=== PATIENT | male | born 1960 | race Caucasian/White ===

== ENCOUNTER 2024-07-03 11:53 | Inpatient (IN) | payer BC, OTHER ==
[~2024-07-03] VITALS: Ht 180.3 cm; Wt 105.0 kg
[2024-07-03 12:28] LABS: Basophils # (auto) 0 10 ^3/uL (0-0.2); Basophils % (auto) 0.7 % (0.0-2.0); Eosinophils # (auto) 0.3 10 ^3/uL (0-0.8); Eosinophils % (auto) 4.7 % (0.0-7.0); Hematocrit 48.7 % (41.0-53.0); Hemoglobin 17.1 g/dL (13.5-17.5); Lymphocytes # (auto) 1.8 10 ^3/uL (0.4-5.4); Lymphocytes % (auto) 24.8 % (10.0-50.0); Mean Corpuscular Hemoglobin 31.2 pg (28.0-32.0); Mean Corpuscular Hgb Conc. 35.1 g/dL (32.0-36.0); Mean Corpuscular Volume 88.9 fL (80.0-100.0); Monocytes # (auto) 0.6 10 ^3/uL (0-1.3); Monocytes % (auto) 8.7 % (0.0-12.0); Neutrophils # (auto) 4.5 10 ^3/uL (1.6-8.6); Neutrophils % (auto) 61.1 % (37.0-80.0); Nucleated Red Blood Cells % 0.2 %; Platelet Count (auto) 161 10^3/uL (140-450); Red Blood Cells 5.48 10^6/uL (4.5-5.90); Red Cell Distribution Width 13.9 % (11.8-14.3); White Blood Cell 7.3 10^3/uL (4.4-10.8)
[2024-07-03 12:33] LABS: Chloride 101 mmol/L (98-107); Sodium 140 mmol/L (136-145)
[2024-07-03 12:34] LABS: Anion Gap 10 (5-15); Calcium 10.6 mg/dL (8.7-10.4); Carbon Dioxide 29 mmol/L (20-31)
[2024-07-03 12:39] LABS: BUN/Creatinine Ratio 12.6 (10.0-20.0); Blood Urea Nitrogen 16 mg/dL (9-23); Glucose 103 mg/dL (74-106)
[2024-07-03] MEDS: METOPROLOL TARTRATE 1MG/1ML-5ML VIAL IV ONE (12:39)
--- NOTE | 2024-07-03 13:14 | DVH ---
CHEST RADIOGRAPH Indication: RAPID AFIB Technique: Single frontal view of the chest was obtained COMPARISON: None FINDINGS: Lines and Tubes: Median sternotomy Lungs: Clear Pleura: No effusion. No pneumothorax. Cardiomediastinal contours: Cardiomegaly Bones: Unremarkable IMPRESSION: No acute disease.
--- NOTE | 2024-07-03 13:20 | DVH ---
EXAM: CT HEAD WITHOUT CONTRAST INDICATION: SYNCOPE TECHNIQUE: CT of the head without intravenous contrast. Radiation Dose : 1. Head: CT Dose: CTDI volume is 64.91 mGy. Dose-length product is 1278.89 mGy*cm The dose indicators for CT are the volume Computed Tomography (CT) Dose Index (CTDIvol) and the Dose Length Product (DLP), and are measured in units of mGy and mGy-cm, respectively. These indicators are not patient dose, but values generated from the CT scanner acquisition factors. The report includes radiation exposure data for exposures received during this examination. COMPARISON: None FINDINGS: There is no evidence of acute intracranial hemorrhage, extra-axial collection, mass effect, midline s hift, herniation or hydrocephalus. The ventricles, sulci and cisterns are age appropriate. The wilder-white differentiation is intact. Mild mucosal disease of the visualized paranasal sinuses without evidence of air-fluid levels or opac ification. The surrounding soft tissues and osseous structures are unremarkable. IMPRESSION: No acute intracranial abnormality.
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
[2024-07-03 15:45] LABS: Urine Bacteria None Seen /hpf (None Seen)
[2024-07-03 15:52] LABS: Urine Blood Negative /uL (Negative); Urine Clarity Clear (Clear); Urine Color Light-Yellow (Yellow); Urine Hyaline Cast MANY /lpf (0 - 2); Urine Mucus FEW (None Seen); Urine Protein, UAD TRACE (Negative); Urine Specific Gravity 1.015 (1.001-1.035); Urine Urobilinogen Normal (Negative); Urine WBC 1 /hpf (0 - 3); Urine pH 5.5 (5.0-9.0)
[2024-07-03] MEDS ORDERED: ACETAMINOPHEN 325 MG TAB PO PRN (16:30)
[2024-07-03] MEDS ORDERED: ONDANSETRON HCL 4 MG/2 ML VIAL IV PRN (16:30)
[2024-07-03] MEDS ORDERED: LORazepam 0.5 MG TAB PO PRN (16:30)
[2024-07-03] MEDS ORDERED: ZOLPIDEM TARTRATE 5 MG TAB PO PRN (16:30)
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
[2024-07-03] MEDS: SODIUM CHLORIDE 0.9% 1,000 ML IV SCH (16:58)
--- NOTE | 2024-07-03 17:29 | DVH ---
Carotid Duplex Date: 07/03/2024 04:53 PM Clinical History: syncope stroke eval Comparison: None Technique: Duplex Doppler evaluation of the extracranial carotid and vertebral arteries including color Doppler and spectral/pulsed waveform analysis was performed. Findings: RIGHT SIDE: The peak systolic velocities are 67 cm/s in the distal CCA and 100 cm/s in the proximal ICA.The ICA/C CA ratio is less than 2. The external carotid artery is patent with peak systolic velocity of 135 cm/s proximally. There is appropriate antegrade flow in the right vertebral artery. LEFT SIDE: The peak systolic velocities are 112 cm/s in the distal CCA and 93 cm/s in the proximal ICA.. The IC A/CCA ratio is less than 1. The external carotid artery is patent with peak systolic velocity of 117 cm/s proximally. There is appropriate antegrade flow in the left vertebral artery. IMPRESSION: No hemodynamically significant stenosis noted in the right carotid system. No hemodynamically significant stenosis noted in the left carotid system. Reference: Radiology 2003; 229:340-346
[2024-07-03] MEDS: FUROSEMIDE 40 MG/4 ML VIAL IV SCH (18:08)
--- NOTE | 2024-07-03 18:09 | ECG ---
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
[2024-07-03 20:00] VITALS: PULSE 76; RESP 14; O2SAT 95
[2024-07-03] MEDS: METOPROLOL TARTRATE 25 MG TAB PO SCH (23:19)
[2024-07-03] MEDS: ENOXAPARIN SOD 100 MG/1 ML SYRINGE SC SCH (23:20)
[2024-07-03] MEDS: ATORVASTATIN 20 MG TAB PO SCH (23:20)
[2024-07-04] VITALS (8 sets, daily range): BP systolic 104–119; BP diastolic 43–92; PULSE 59–87; RESP 16–20; TEMP 97.5–97.8; O2SAT 95–97
[2024-07-04] MEDS ORDERED: FURO40TA4 PO (04:42)
[2024-07-04] MEDS ORDERED: ATOR-47 PO (04:42)
[2024-07-04] MEDS ORDERED: METO1TAB9 PO (04:42)
[2024-07-04] MEDS ORDERED: APIX5TAB PO (04:42)
[2024-07-04] MEDS ORDERED: ALBU108A5 INH (04:43)
[2024-07-04 08:22] LABS: Basophils # (auto) 0.1 10 ^3/uL (0-0.2); Basophils % (auto) 1.2 % (0.0-2.0); Eosinophils # (auto) 0.3 10 ^3/uL (0-0.8); Eosinophils % (auto) 6.1 % (0.0-7.0); Hematocrit 43.8 % (41.0-53.0); Lymphocytes # (auto) 1.7 10 ^3/uL (0.4-5.4); Lymphocytes % (auto) 29.3 % (10.0-50.0); Mean Corpuscular Hemoglobin 30.6 pg (28.0-32.0); Mean Corpuscular Hgb Conc. 34.4 g/dL (32.0-36.0); Mean Corpuscular Volume 89.1 fL (80.0-100.0); Monocytes # (auto) 0.6 10 ^3/uL (0-1.3); Monocytes % (auto) 11.2 % (0.0-12.0); Neutrophils % (auto) 52.2 % (37.0-80.0); Platelet Count (auto) 148 10^3/uL (140-450); Red Blood Cells 4.91 10^6/uL (4.5-5.90); Red Cell Distribution Width 13.7 % (11.8-14.3); White Blood Cell 5.7 10^3/uL (4.4-10.8)
[2024-07-04 08:33] LABS: Anion Gap 9 (5-15); Carbon Dioxide 29 mmol/L (20-31); Chloride 103 mmol/L (98-107); Potassium 3.6 mmol/L (3.5-5.1); Sodium 141 mmol/L (136-145)
[2024-07-04 08:39] LABS: BUN/Creatinine Ratio 12.6 (10.0-20.0); Blood Urea Nitrogen 14 mg/dL (9-23); Glucose 92 mg/dL (74-106)
[2024-07-04] MEDS: LISINOPRIL 5 MG TAB PO SCH (10:00)
[2024-07-04] MEDS: DOCUSATE SOD 100 MG CAP PO SCH (10:47)
[2024-07-04] MEDS: ASPirin 81 mg TAB PO SCH (10:47)
--- NOTE | 2024-07-04 11:06 | DVHPN2 ---
Subjective Patient denies any symptoms at this time. Reviewed: Care Plan, H&P, Labs, Medications Changes from previous H/P or p: No Changes General: Per HPI Eyes: No Pain, No Vision change, No Conjunctivae inflammation, No Eyelid inflammation, No Other, No Redness ENT: No Ear pain, No Ear discharge, No Nose pain, No Nose discharge, No Nose congestion, No Mouth pain, No Mouth swelling, No Throat pain, No Throat swelling, No Other Cardiovascular: No Chest Pain, No Palpitations, No Orthopnea, No Paroxysmal Noc. Dyspnea, No Edema, No Lt Headedness, No Other Respiratory: No Cough, No Dry, No Shortness of breath, No SOB with excertion, No Wheezing, No Hemoptysis, No Pleuritic Pain, No Sputum, No Other Gastrointestinal: No Nausea, No Vomiting, No Abdominal Pain, No Diarrhea, No Constipation, No Melena, No Hematochezia, No Other Genitourinary: No Dysuria, No Frequency, No Incontinence, No Hematuria, No Retention, No Other Musculoskeletal: No other, No neck pain, No shoulder pain, No arm pain, No back pain, No hand pain, No leg pain, No foot pain Skin: No Rash, No Lesions, No Jaundice, No Bruising, No Other Objective Vitals Vital Signs Date Time Temp Pulse Resp B/P (MAP) Pulse Ox O2 Delivery O2 Flow Rate FiO2 07/04/24 09:00 97.5 62 16 105/43 (63) 96 97.5 07/04/24 04:33 Room Air* 0 21 Intake/Output Intake and Output 07/04/24 07:00 Intake Total 100 ml Output Total 1100 ml Balance -1000 ml Intake Oral 100 ml Output Urine Total 1100 ml General Appearance: Alert, Oriented X3, Cooperative, No acute distress HEENT: Atraumatic, PERRLA Cardiovascular: Normal S1, Normal S2 Abdomen: Normal bowel sounds, Soft, No tenderness Musculoskeletal: Normal sensory function, Normal motor function Neuro: Normal gait, Normal speech Psych/Mental Status: Mental status NL, Mood NL Medications Current Medications Medications Dose Ordered Sig/Mayra Route Start Time Stop Time Status Last Admin Dose Admin Sodium Chloride 1,000 ml @ 75 mls/hr [id number] IV 07/03/24 16:30 07/04/24 05:50 75 MLS/HR Aspirin 81 mg DAILY PO 07/04/24 10:00 Atorvastatin Calcium 40 mg HS PO 07/03/24 22:00 07/03/24 23:20 40 MG Metoprolol Tartrate 12.5 mg Q12HR PO 07/03/24 22:00 07/03/24 23:19 12.5 MG Acetaminophen 650 mg Q6HP PRN PO 07/03/24 16:30 Zolpidem Tartrate 5 mg QHSP PRN PO 07/03/24 16:30 Lorazepam 0.5 mg Q6HP PRN PO 07/03/24 16:30 Docusate Sodium 100 mg DAILY PO 07/04/24 10:00 Enoxaparin Sodium 100 mg Q12HR SC 07/03/24 22:00 07/03/24 23:20 100 MG Ondansetron HCl 4 mg Q4HP PRN IV 07/03/24 16:30 Lisinopril 10 mg DAILY PO 07/04/24 10:00 Furosemide 40 mg BID IV 07/03/24 17:00 07/03/24 18:08 40 MG Laboratory Results Laboratory Tests 07/04/24 08:02 Chemistry Test 07/03/24 12:02 07/04/24 08:02 Calcium Level 10.6 mg/dL (8.7-10.4) H 10.0 mg/dL (8.7-10.4) Cardiac Markers Test 07/03/24 12:02 B-Type Natriuretic Peptide 417.88 pg/mL (0-100) Urinalysis Test 07/03/24 15:43 Urine Color Light-yellow (Yellow) Urine Clarity Clear (Clear) Urine pH 5.5 (5.0-9.0) Urine Specific [place] 1.015 (1.001-1.035) Urine Protein Trace (Negative) H Urine Ketones Negative (Negative) Urine Blood Negative /uL (Negative) Urine Nitrite Negative (Negative) Urine Bilirubin Negative (Negative) Urine Urobilinogen Normal mg/dL (Negative) Urine Leukocyte Esterase Negative /uL (Negative) Urine RBC 1 /hpf (0 - 3) Urine WBC 1 /hpf (0 - 3) Urine Squamous Epithelial Cells Few /hpf (<5) Urine Bacteria None seen /hpf (None Seen) Urine Hyaline Casts Many /lpf (0 - 2) Urine Granular Casts Few /lpf (0) Urine Mucus Few (None Seen) Urine Glucose Normal mg/dL (Normal) Labs and/or images reviewed: Labs reviewed by me, Image(s) reviewed by me Assessment/Plan Assessment/Plan Impression: -syncope -CAD with history of CABG and multiple stents -acute on chronic systolic heart failure with ejection fraction approximately 35% -atrial fibrillation with rapid ventricular rate -primary hypertension Plan: -restart Eliquis, stop Lovenox -echocardiogram -orthostatic blood pressure -carotid Doppler study negative for stenosis -CT scan of the head negative for any acute pathology -cardiology consultation. Patient reports last echocardiogram was a stress echo approximately six months ago. States he was currently being evaluated for AICD -further course of care per Cardiology recommendations. -continue rate control with beta-blockers. Continue lisinopril. Stop IV Lasix given patient was on room air with mild congestion and no signs of dyspnea. Total time spent with patient discussing and formulating plan of care: 35 minutes. This medical document was created using an electronic medical record system with [employer] dictation system. Although this document has been carefully reviewed, there may still be some phonetic and typographical errors. These areas are purely typographical due to imperfections of the software programs, and do not reflect any compromise in the patient's medical care. Plan discussed with: Patient, Other (RN) My Orders Orders - VIDHI OLIVAREZ NP Procedure Category Date Status Time Echo 2d Mode Cardiac US 07/04/24 Logged DOP 10:39 * Cardiology Consult CONS 07/04/24 Transmitted 10:39 Apixaban (Eliquis) PHA 07/04/24 In Process 22:00 Date of Service: Jul 04, 2024 Billing Provider: VIDHI OLIVAREZ NP Common Visit Codes: [id number] INP/OBS CARE(HIGH) VIDHI OLIVAREZ NP Jul 04, 2024 11:06
--- NOTE | 2024-07-04 12:28 | DVHINCON2 ---
Date Seen: Jul 04, 2024 Referring Physician SANAZ Lobo Reason for Consultation Coronary artery disease, atrial fibrillation with rapid ventricular response, syncopal episode History of Present Illness This is a 64-year-old male patient who presents to the emergency room after syncopal episode. The patient reports [place] suddenly lost consciousness and woke up in a parking lot. The patient's called emergency medical services and the patient was brought to the emergency room for further evaluation. Upon emergency room arrival, initial twelve lead electrocardiogram reveals atrial fibrillation with rapid ventricular response. The patient denies any cardiac symptoms such as chest pain, shortness or breath, or palpitations. Initial troponin level of 17ng/L with flat trend thereafter. Significant past medical history includes coronary artery disease status post double-vessel bypass CABG in 2001, multiple PTCAs x4 ASAEL, congestive heart failure, atrial fibrillation (on Eliquis), hypertension, dyslipidemia, gout, and morbid obesity. Patient sees metal melter Dr. Noyola in [place]. Past Medical History Past medical history reviewed. No other significant than mentioned above. Past Surgical History Double-vessel bypass CABG in 2001 Family History: FH: non-Hodgkin's lymphoma G8 MOTHER, , Age: 50's - 60 Family History Family history reviewed. Social History Patient has a 15 pack-year history, quit smoking approximately 10 years ago Patient denies any alcohol use Patient denies any illicit drug use Allergies: Coded Allergies: NO KNOWN ALLERGIES (Unverified , 07/03/24) Home Meds Reported Medications Albuterol Sulfate (Albuterol Sulfate Hfa) 108 Mcg/Act Aer, 2 PUFF INH PRN for SHORTNESS OF BREATH 07/04/24 Atorvastatin Calcium (ATORVASTATIN CALCIUM) 80 Mg Tab, 1 TAB PO DAILY 07/04/24 Metoprolol Succinate (Metoprolol Succinate Er) 100 Mg Tab, 1 TAB PO DAILY 07/04/24 Furosemide (Furosemide) 40 Mg Tab, 1 TAB PO BID 07/04/24 Apixaban Base (ELIQUIS) 5 Mg Tab, 1 TAB PO BID 07/04/24 Home Meds Home medications reviewed. Current Medications Current Medications Medications (Trade) Dose Ordered Sig/Mayra Route PRN Reason Start Time Stop Time Status Last Admin Sodium Chloride 1,000 ml @ 75 mls/hr [id number] IV 07/03/24 16:30 07/04/24 10:43 DC 07/04/24 05:50 Aspirin 81 mg DAILY PO 07/04/24 10:00 07/04/24 10:47 Atorvastatin Calcium (Lipitor) 40 mg HS PO 07/03/24 22:00 07/03/24 23:20 Metoprolol Tartrate (Lopressor Tablet) 12.5 mg Q12HR PO 07/03/24 22:00 07/03/24 23:19 Acetaminophen (Tylenol Tablet) 650 mg Q6HP PRN PO MILD PAIN (1-3 PAIN SCALE) 07/03/24 16:30 Zolpidem Tartrate (Ambien) 5 mg QHSP PRN PO FOR INSOMNIA 07/03/24 16:30 Lorazepam (Ativan Tablet) 0.5 mg Q6HP PRN PO ANXIETY 07/03/24 16:30 Docusate Sodium (Colace Capsule) 100 mg DAILY PO 07/04/24 10:00 07/04/24 10:47 Enoxaparin Sodium (Lovenox) 100 mg Q12HR SC 07/03/24 22:00 07/04/24 10:43 DC 07/03/24 23:20 Ondansetron HCl (Zofran) 4 mg Q4HP PRN IV NAUSEA / VOMITING 07/03/24 16:30 Lisinopril (Zestril Tablet) 10 mg DAILY PO 07/04/24 10:00 Furosemide (Lasix Injection) 40 mg BID IV 07/03/24 17:00 07/04/24 10:43 DC 07/03/24 18:08 Apixaban (Eliquis) 5 mg BID PO 07/04/24 22:00 Review of Systems Constitutional: No symptom reported Ears, Nose, & Throat: No symptom reported Eyes: No symptom reported Neurological: Syncope Pulmonary/Respiratory: No symptoms reported Cardiovascular: No symptom reported Gastrointestinal: No symptom reported Genitourinary: No symptom reported Musculoskeletal: No symptom reported Skin: No symptom reported Psychiatric: No symptom reported Endocrine: No symptom reported Hematologic/Lymphatic: No symptom reported Vital Signs Vital Signs Date Time Temp Pulse Resp B/P (MAP) Pulse Ox O2 Delivery O2 Flow Rate FiO2 07/04/24 10:42 87 119/92 (101) 07/04/24 09:00 97.5 16 96 97.5 07/04/24 04:33 Room Air* 0 21 Physical Exam General Appearance: Cooperative. Obese Pulmonary/Respiratory: Clear, bilateral breaths sounds. Cardiovascular/Chest: Irregular rate and rhythm. Peripheral Pulses: 2+ Radial (R). 2+ Radial (L). 2+ Pedal (R). 2+ Pedal (L) Abdominal Exam: Normal bowel sounds. Ankle Exam: Negative ankle edema Lower extremities: Negative lower extremity edema Neuro/Mental Status: A/OX4, coherent. Thoughts/Psych: Normal thought pattern. Appropriate mood and affect. Good judgment and insight. Appearance: No acute distress. Skin Exam: Normal inspection. Normal color. Warm and dry. Labs/Diagnostic Data Labs Test 07/04/24 08:02 07/03/24 17:54 07/03/24 15:43 07/03/24 12:02 Range/Units White Blood Count 5.7 4.4-10.8 10^3/uL Red Blood Count 4.91 4.5-5.90 10^6/uL Hemoglobin 15.0 13.5-17.5 g/dL Hematocrit 43.8 # 41.0-53.0 % Mean Corpuscular Volume 89.1 80.0-100.0 fL Mean Corpuscular Hemoglobin 30.6 28.0-32.0 pg Mean Corpuscular Hemoglobin Concent 34.4 32.0-36.0 g/dL Red Cell Distribution Width 13.7 11.8-14.3 % Platelet Count 148 140-450 10^3/uL Mean Platelet Volume 7.6 6.9-10.8 fL Neutrophils (%) (Auto) 52.2 37.0-80.0 % Lymphocytes (%) (Auto) 29.3 10.0-50.0 % Monocytes (%) (Auto) 11.2 0.0-12.0 % Eosinophils (%) (Auto) 6.1 0.0-7.0 % Basophils (%) (Auto) 1.2 0.0-2.0 % Neutrophils # (Auto) 3.0 1.6-8.6 10 ^3/uL Lymphocytes # (Auto) 1.7 0.4-5.4 10 ^3/uL Monocytes # (Auto) 0.6 0-1.3 10 ^3/uL Eosinophils # (Auto) 0.3 0-0.8 10 ^3/uL Basophils # (Auto) 0.1 0-0.2 10 ^3/uL Nucleated Red Blood Cells 0.0 % Sodium Level 141 136-145 mmol/L Potassium Level 3.6 3.5-5.1 mmol/L Chloride Level 103 98-107 mmol/L Carbon Dioxide Level 29 20-31 mmol/L Anion Gap 9 5-15 Blood Urea Nitrogen 14 9-23 mg/dL Creatinine 1.11 0.700-1.30 mg/dL Glomerular Filtration Rate Calc 74 >90 mL/min BUN/Creatinine Ratio 12.6 10.0-20.0 Serum Glucose 92 74-106 mg/dL Calcium Level 10.0 8.7-10.4 mg/dL Troponin I High Sensitivity 43 </=54 ng/L Urine Color Light-yellow Yellow Urine Clarity Clear Clear Urine pH 5.5 5.0-9.0 Urine Specific [place] 1.015 1.001-1.035 Urine Protein Trace H Negative Urine Ketones Negative Negative Urine Blood Negative Negative /uL Urine Nitrite Negative Negative Urine Bilirubin Negative Negative Urine Urobilinogen Normal Negative mg/dL Urine Leukocyte Esterase Negative Negative /uL Urine RBC 1 0 - 3 /hpf Urine WBC 1 0 - 3 /hpf Urine Squamous Epithelial Cells Few <5 /hpf Urine Bacteria None seen None Seen /hpf Urine Hyaline Casts Many 0 - 2 /lpf Urine Granular Casts Few 0 /lpf Urine Mucus Few None Seen Urine Glucose Normal Normal mg/dL B-Type Natriuretic Peptide 417.88 0-100 pg/mL Assessment Tachy-sergio syndrome, sick sinus syndrome Syncope, rule out cardiac etiology Coronary artery disease status post double-vessel bypass CABG in 2001 Multiple PTCAs x4 ASAEL (off antiplatelet therapy) Chronic HFrEF, NYHA class II Atrial fibrillation, likely persistent (on Eliquis) Hypertension Dyslipidemia History of tobacco use Obesity, class 2 Plan/Recommendation We will continue following plan/recommendations (Dr. Christine): * Echocardiogram reveals EF 30% with global akinesia * Initiate GDMT for CHF as tolerated * [id number] VASc score: 3 points * Therapeutic Lovenox, transition back to Eliquis when appropriate * Beta polly for rate control (hold if pulse less than 60bpm) * Single antiplatelet therapy and lipid-lowering agent * Carotid ultrasound: Negative * Orthostatic vital signs * EP consult Patient seen and examined at bedside with . Patient noted to have multiple episodes of tachycardia and bradycardia while in atrial fibrillation on cardiac cath lab radiology technologist. Given the patient's low ejection fraction and now sick sinus syndrome, the patient may qualify for ICD implantation. We will reach out to electrophysiology team to assess if patient is a good candidate. In the meantime, continue with medical management with GDMT. Thank you for allowing us to care for this patient. Please call with any questions or concerns. Critical care time spent: 41 minutes This medical document was created using an electronic medical record system with voice recognition software and computerized dictation system. Although this document has been carefully reviewed, there might still be some phonetic and typographical errors. Occasional wrong-word or ``sound-alike substitutions may have occurred due to the inherent limitations of voice recognition software. These areas are purely typographical due to imperfections of the software programs and do not reflect any compromise in the patient's medical care. Please read the chart carefully and recognize, using context, where these substitutions have occurred. Plan discussed with: Patient NYHA Physical activity limitations: Class2(Slight)fatigue,sob (palpitatns, angina w activityv) Date of Service: Jul 04, 2024 Billing Provider: CHENTE CHRISTINE MD Cardiology Common Codes: [id number] INP/OBS CARE (High) Cardiology Consultation Codes: [id number] CONSULT <45MIN SAGE PASCUAL Jul 04, 2024 12:28
[2024-07-04 13:30] LABS: Magnesium 2.3 mg/dL (1.6-2.6)
--- NOTE | 2024-07-04 13:35 | DVHSR ---
APPROVED REPORT EXAM: Two-dimensional and M-mode echocardiogram with Doppler and color Doppler. Blood Pressure: 105/43 mmHg INDICATION acute on chronic systolic heart failure RISK FACTORS Height: 5'11, Weight: 231 DIMENSIONS LVDd4.9 (3.8-5.7cm)LA (2D)4.4 (1.9-4.0cm)Aortic Root2.9 (2.0-3.7cm) LVDs4.1 (2.5-4.0cm)LA (MM) (1.9-4.0cm)Aortic Cusp Exc1.6 (1.5-2.0cm) EF (%) 34.0 (55-70%)Rt. Atrium3.7 (1.9-4.0cm)Asc. Aorta3.3 cm IVSd1.1 (0.7-1.1cm)RV (D) (1.8-2.4cm) PWd1.3 (0.7-1.1cm) Mitral Valve MitralMitral Stenosis E wave0.85m/sMV Mean GR.1mmHg A wavem/sMV Peak GR.53mmHg E/A ratio0.02D MVAcm2 DECEL [id number] 1/2 Timems Aortic Valve Aortic ValveAortic Stenosis V10.94m/Rodrigo Mean GR.2mmHg V21.15m/Rodrigo Peak GR.5mmHg LVOT Diameter1.8 (1.8-2.4cm)Doppler AVA2.08cm2 Pulmonic Valve V20.75m/s Tricuspid Valve TR Velocity2.69m/s [id number] Conclusion Severely dilated left ventricle. Severely reduced left ventricular systolic function with estimated ejection fraction of 30%. There is global wall akinesia. Severely dilated right ventricular. Severely reduced right ventricular systolic function. Moderatel y elevated right ventricular systolic pressure at 38 mm of mercury Severely dilated right and left atria. Normal aortic valve structure and function. There is mild mitral valve regurgitation. Mild tricuspid valve regurgitation. The pulmonary valve is grossly normal. No pericardial effusion.
[2024-07-04] MEDS ORDERED: ENOXAPARIN SOD 100 MG/1 ML SYRINGE SC SCH (22:00)
[2024-07-04] MEDS ORDERED: APIXABAN 5 MG TAB PO SCH (22:00)
[2024-07-05] MEDS ORDERED: EMPAGLIFLOZIN 10 MG TAB PO SCH (10:00)
[2024-07-05] MEDS ORDERED: SPIRONOLACTONE 25 MG TAB PO SCH (10:00)
--- NOTE | 2024-07-05 11:49 | DVHDS2 ---
Discharge Summary Date of Admission Jul 03, 2024 at 16:17 Date of Discharge: Jul 04, 2024 Admitting Diagnosis Syncope with collapse Labs/Diagnostic Data: Laboratory Results Test 07/04/24 08:02 07/03/24 17:54 07/03/24 15:43 07/03/24 12:02 White Blood Count 5.7 10^3/uL (4.4-10.8) Red Blood Count 4.91 10^6/uL (4.5-5.90) Hemoglobin 15.0 g/dL (13.5-17.5) Hematocrit 43.8 % (41.0-53.0) Mean Corpuscular Volume 89.1 fL (80.0-100.0) Mean Corpuscular Hemoglobin 30.6 pg (28.0-32.0) Mean Corpuscular Hemoglobin Concent 34.4 g/dL (32.0-36.0) Red Cell Distribution Width 13.7 % (11.8-14.3) Platelet Count 148 10^3/uL (140-450) Mean Platelet Volume 7.6 fL (6.9-10.8) Neutrophils (%) (Auto) 52.2 % (37.0-80.0) Lymphocytes (%) (Auto) 29.3 % (10.0-50.0) Monocytes (%) (Auto) 11.2 % (0.0-12.0) Eosinophils (%) (Auto) 6.1 % (0.0-7.0) Basophils (%) (Auto) 1.2 % (0.0-2.0) Neutrophils # (Auto) 3.0 10 ^3/uL (1.6-8.6) Lymphocytes # (Auto) 1.7 10 ^3/uL (0.4-5.4) Monocytes # (Auto) 0.6 10 ^3/uL (0-1.3) Eosinophils # (Auto) 0.3 10 ^3/uL (0-0.8) Basophils # (Auto) 0.1 10 ^3/uL (0-0.2) Nucleated Red Blood Cells 0.0 % Sodium Level 141 mmol/L (136-145) Potassium Level 3.6 mmol/L (3.5-5.1) Chloride Level 103 mmol/L (98-107) Carbon Dioxide Level 29 mmol/L (20-31) Anion Gap 9 (5-15) Blood Urea Nitrogen 14 mg/dL (9-23) Creatinine 1.11 mg/dL (0.700-1.30) Glomerular Filtration Rate Calc 74 mL/min (>90) BUN/Creatinine Ratio 12.6 (10.0-20.0) Serum Glucose 92 mg/dL (74-106) Hemoglobin A1c 5.5 % A1C (<5.7) Calcium Level 10.0 mg/dL (8.7-10.4) Magnesium Level 2.3 mg/dL (1.6-2.6) Triglycerides Level 100 mg/dL (< 150) Cholesterol Level 136 mg/dL (< 200) LDL Cholesterol 77 mg/dL (< 100) HDL Cholesterol 42 mg/dL (40-59) Thyroid Stimulating Hormone (TSH) 1.64 uIU/mL (0.55-4.78) Troponin I High Sensitivity 43 ng/L (</=54) Urine Color Light-yellow (Yellow) Urine Clarity Clear (Clear) Urine pH 5.5 (5.0-9.0) Urine Specific [place] 1.015 (1.001-1.035) Urine Protein Trace (Negative) Urine Ketones Negative (Negative) Urine Blood Negative /uL (Negative) Urine Nitrite Negative (Negative) Urine Bilirubin Negative (Negative) Urine Urobilinogen Normal mg/dL (Negative) Urine Leukocyte Esterase Negative /uL (Negative) Urine RBC 1 /hpf (0 - 3) Urine WBC 1 /hpf (0 - 3) Urine Squamous Epithelial Cells Few /hpf (<5) Urine Bacteria None seen /hpf (None Seen) Urine Hyaline Casts Many /lpf (0 - 2) Urine Granular Casts Few /lpf (0) Urine Mucus Few (None Seen) Urine Glucose Normal mg/dL (Normal) B-Type Natriuretic Peptide 417.88 pg/mL (0-100) Other Laboratory Tests 07/04/24 08:02 Brief Hx & Hospital Course: History of Present Illness 64-year-old male with a longstanding history of hypertension severe cardiac history including CHF patient comes today for evaluation of having a syncopal episode patient states that he was driving at that point in time felt palpitations in his chest initially had acute changes in movement including turning his neck to the side followed by having a syncopal episode patient did state that he was initially evaluated for AICD but was told that his ejection fraction had improved significantly he no longer required to have 1 at this point in time due to syncopal episodes of AFib with RVR patient was recommended to have an inpatient evaluation at this time.. Course of hospitalization: Long discussion was made with the patient regarding his cardiac history. Apparently, he had a CABG approximately 20 years ago. Approximately six years ago he had his last stent placed. He states that he had a stress echocardiogram approximately six months ago. Discussion was made with the patient regarding plan of care. Cardiology consultation was obtained. Echocardiogram reveals ejection fraction approximately 30% with noted four-chamber dilatation. Was found with the patient had multiple episodes of bradycardia after evaluating bedside telemetry. Wire Spooler was made with the patient by Cardiology for possible AICD placement. The patient was decided to leave AMA yesterday evening. Consults/Reason for consult Cardiology: Syncope with collapse, CAD, systolic heart failure Condition at Discharge: Undetermined Final Diagnosis/Problems List Atrial fibrillation with rapid ventricular rate as well as periods of bradycardia Secondary Diagnosis: -syncope -CAD with history of CABG and multiple stents -acute on chronic systolic heart failure with ejection fraction approximately 35% -atrial fibrillation with rapid ventricular rate -primary hypertension Discharge Disposition: AMA Discharge Instruct/Medications Diet: Cardiac 2g Na,low cholest 36 Discharge Statement: "Patient was advised to return to the ER or call 911 if any headaches, dizziness, shortness of breath, chest pain, abdominal pain, bleeding, fevers, or worsening of medical condition. Patient was counseled about treatment plan, medications, possible side effects, patientverbalized understanding. All questions were answered to the best of my ability. This discharge took greater then 30 minutes in planning, reviewing documentation, counseling the patient, and discussing with other team members." ASSESSMENT ASSESSMENT Assessment Date of Service: Jul 04, 2024 Billing Provider: VIDHI OLIVAREZ NP Common Visit Codes: [id number] DISCH DAY >30min VIDHI OLIVAREZ NP Jul 05, 2024 11:49
== END 2024-07-04 19:30 | disposition left against medical advice (07) | DRG 308 ==
LOC: ER 11:53 → EDBD 11:53 → OVERFLOW 16:17 → TELE-EAST 07-04 03:30
PROVIDERS: ADMIT Hospitalist; ATTEND Nurse Practitioner Acute Care
DX: I49.5 Sick sinus syndrome (principal); I50.43 Acute on chronic combined systolic (congestive) and diastolic (congestive) heart failure; I48.20 Chronic atrial fibrillation, unspecified; I11.0 Hypertensive heart disease with heart failure; Z53.29 Procedure and treatment not carried out because of patient's decision for other reasons; E66.812 Obesity, class 2; E78.5 Hyperlipidemia, unspecified; I25.10 Atherosclerotic heart disease of native coronary artery without angina pectoris; M10.9 Gout, unspecified; Z95.1 Presence of aortocoronary bypass graft; Z79.01 Long term (current) use of anticoagulants; Z80.7 Family history of other malignant neoplasms of lymphoid, hematopoietic and related tissues; Z87.891 Personal history of nicotine dependence; Z68.32 Body mass index [BMI] 32.0-32.9, adult
CPT/HCPCS: 36415; 70450; 71045; 80048; 80061; 81001; 83036; 83735; 83880; 84443; 84484; 85025; 93005; 93306; 93886; 96361; 96374; G0378